=== PATIENT | male | born 1960 | race Caucasian/White ===

== ENCOUNTER 2021-05-27 16:50 | Inpatient (IN) | payer BC ==
[~2021-05-27 16:50] MED LIST: Iopamidol-370 76% 500 ML 1 ML ONE
[2021-05-27 18:01] LABS: #Lymphocytes 0.7 thou/uL (1.20-3.40); #Monocytes 0.4 thou/uL (0.11-0.59); #Neutrophils 7.7 thou/uL (1.40-6.50); %Basophils 0.3 % (0.0-1.0); %Lymphocytes 8.4 % (21.0-51.0); %Neutrophils 87.2 % (42.0-75.0); Hemoglobin 13.7 g/dL (14.0-18.0); Mean Corpuscular HGB CONC 35.5 g/dL (32.0-36.0); Mean Corpuscular Hemoglobin 33.2 pg (27.0-31.0); Mean Corpuscular Volume 93.4 fL (78.0-98.0); Platelet Count 206 thou/uL (130-400); RBC Distribution Width 12.1 % (11.5-14.5); Red Blood Cell (RBC) Count 4.13 mill/uL (4.70-6.10); White Blood Cell (WBC) Count 8.8 thou/uL (4.8-10.8)
[2021-05-27 18:19] LABS: ALT (SGPT) 39 U/L (8-55); AST (SGOT) 45 U/L (5-34); Albumin 3.7 g/dL (3.4-4.8); Alkaline Phosphatase 260 U/L (40-110); Anion Gap 14 mmol/L (10-20); BUN (Urea Nitrogen) 15 mg/dL (8.4-25.7); Bilirubin, Total 0.7 mg/dL (0.2-1.2); Calc. Creatinine Clearance 0 mL/min (70-130); Calcium 8.7 mg/dL (7.8-10.44); Carbon Dioxide 25 mmol/L (23-31); Chloride 101 mmol/L (98-107); Globulin 2.8 g/dL (2.4-3.5); Glucose 104 mg/dL (80-115); Magnesium 2.2 mg/dL (1.6-2.6); Potassium 4.4 mmol/L (3.5-5.1); Protein, Total 6.5 g/dL (5.8-8.1); Sodium 136 mmol/L (136-145)
[2021-05-27] MEDS ORDERED: Ondansetron ODT 4 MG TAB PO PRN (19:17)
[2021-05-27] MEDS ORDERED: Ketorolac Tromethamine 30 MG/ML VIAL ONE (19:17)
[2021-05-27] MEDS ORDERED: Acetaminophen 500 MG TAB ONE (19:17)
[2021-05-27] MEDS ORDERED: Dexamethasone 4 mg/ml Vial ONE (19:17)
[2021-05-27] MEDS ORDERED: Guaifenesin DM 100-10/5 ML UDCUP PO PRN (19:17)
[2021-05-27] MEDS ORDERED: Ivermectin 3 MG TAB PO SCH (21:00)
[2021-05-27] MEDS: Melatonin 3 MG TAB PO SCH (23:05)
[2021-05-27] MEDS: Enoxaparin Sodium 40 MG/0.4 ML SYRINGE SC SCH (23:05)
[2021-05-27] MEDS: Colchicine 0.6 MG TAB PO SCH (23:05)
[2021-05-27] MEDS: Dexamethasone 4 mg/ml Vial SLOW IVP SCH (23:06)
[2021-05-28] MEDS ORDERED: Benzonatate 100 MG CAP PO PRN (00:47)
[2021-05-28 05:56] LABS: #Lymphocytes 0.5 thou/uL (1.20-3.40); #Monocytes 0.2 thou/uL (0.11-0.59); #Neutrophils 6.2 thou/uL (1.40-6.50); %Basophils 0.2 % (0.0-1.0); %Lymphocytes 6.9 % (21.0-51.0); %Monocytes 2.9 % (0.0-10.0); %Neutrophils 90.1 % (42.0-75.0); Hemoglobin 13.7 g/dL (14.0-18.0); Mean Corpuscular HGB CONC 31.1 g/dL (32.0-36.0); Mean Corpuscular Hemoglobin 29.1 pg (27.0-31.0); Mean Corpuscular Volume 93.6 fL (78.0-98.0); Mean Platelet Volume 8.1 fL (7.4-10.4); Platelet Count 235 thou/uL (130-400); RBC Distribution Width 12.2 % (11.5-14.5); Red Blood Cell (RBC) Count 4.69 mill/uL (4.70-6.10); White Blood Cell (WBC) Count 6.8 thou/uL (4.8-10.8)
[2021-05-28 06:23] LABS: ALT (SGPT) 38 U/L (8-55); AST (SGOT) 39 U/L (5-34); Albumin 3.5 g/dL (3.4-4.8); Alkaline Phosphatase 240 U/L (40-110); Anion Gap 14 mmol/L (10-20); BUN (Urea Nitrogen) 18 mg/dL (8.4-25.7); Bilirubin, Total 0.5 mg/dL (0.2-1.2); Calc. Creatinine Clearance 0 mL/min (70-130); Calcium 9.5 mg/dL (7.8-10.44); Carbon Dioxide 24 mmol/L (23-31); Chloride 100 mmol/L (98-107); Globulin 3.7 g/dL (2.4-3.5); Glucose 185 mg/dL (80-115); Potassium 4.4 mmol/L (3.5-5.1); Protein, Total 7.2 g/dL (5.8-8.1); Sodium 134 mmol/L (136-145)
[2021-05-28] MEDS: Mometasone 200 MCG/Formoterol 5 MCG 120 PUFF INHALER INH SCH ×2 (06:41→18:04)
[2021-05-28] MEDS: Cholecalciferol 1,000 UNITS (25 MCG) TAB PO SCH (07:43)
[2021-05-28] MEDS: Ascorbic Acid 500 mg Chewable Tablet PO SCH (07:43)
[2021-05-28] MEDS: Dexamethasone 4 mg/ml Vial SLOW IVP SCH ×2 (07:44→20:37)
[2021-05-28] MEDS: Zinc Sulfate 220 MG CAP PO SCH (07:44)
[2021-05-28] MEDS: Colchicine 0.6 MG TAB PO SCH ×2 (07:44→20:37)
[2021-05-28] MEDS: Acetaminophen 325 MG TAB PO PRN (07:45)
[2021-05-28] MEDS: Enoxaparin Sodium 40 MG/0.4 ML SYRINGE SC SCH ×2 (07:47→20:37)
[2021-05-28] MEDS: Ivermectin 3 MG TAB PO SCH (08:36)
[2021-05-28 13:47] VITALS: BMI 24.4
[2021-05-28] MEDS ORDERED: Prevnar 13-Val Conj/PF 0.5 ML SYRINGE IM ONE (21:00)
[2021-05-28] MEDS: Melatonin 3 MG TAB PO SCH ×2 (21:00→21:03)
[2021-05-28] MEDS: Atorvastatin Calcium 20 MG TAB PO SCH ×2 (21:00→21:01)
[2021-05-28] MEDS ORDERED: Melatonin 3 MG TAB ONE (21:00)
[2021-05-28] MEDS ORDERED: Lorazepam 2 MG/ML VIAL ONE (21:01)
[2021-05-28] MEDS: Amlodipine 5 MG TAB PO SCH (21:06)
[2021-05-28] MEDS: Fluticasone Propionate Nasal Spray 16 gm Bottle NASAL SCH (21:40)
[2021-05-29] MEDS: Azelastine 137 MCG/Spray 30 ML NS SCH ×3 (01:23→20:43)
[2021-05-29] MEDS: Acetaminophen 325 MG TAB PO PRN (01:25)
[2021-05-29] MEDS: Mometasone 200 MCG/Formoterol 5 MCG 120 PUFF INHALER INH SCH ×2 (05:13→17:59)
[2021-05-29] MEDS: Levothyroxine Sodium 100 MCG TAB PO SCH (05:13)
[2021-05-29] MEDS: Aspirin 81 mg Enteric Coated Tablet PO SCH (07:45)
[2021-05-29] MEDS: Dexamethasone 4 mg/ml Vial SLOW IVP SCH ×2 (07:45→20:42)
[2021-05-29] MEDS: Cholecalciferol 1,000 UNITS (25 MCG) TAB PO SCH (07:46)
[2021-05-29] MEDS: Ascorbic Acid 500 mg Chewable Tablet PO SCH (07:46)
[2021-05-29] MEDS: Colchicine 0.6 MG TAB PO SCH ×2 (07:46→20:43)
[2021-05-29] MEDS: Amlodipine 5 MG TAB PO SCH ×2 (07:46→20:43)
[2021-05-29] MEDS: Zinc Sulfate 220 MG CAP PO SCH (07:46)
[2021-05-29] MEDS: Allopurinol 300 MG TAB PO SCH (07:46)
[2021-05-29] MEDS: Enoxaparin Sodium 40 MG/0.4 ML SYRINGE SC SCH ×2 (07:47→20:43)
[2021-05-29] MEDS: Fluticasone Propionate Nasal Spray 16 gm Bottle NASAL SCH ×2 (07:57→20:44)
[2021-05-29] MEDS: Ivermectin 3 MG TAB PO SCH (07:58)
[2021-05-29] MEDS: Atorvastatin Calcium 20 MG TAB PO SCH (20:43)
[2021-05-29] MEDS: Melatonin 3 MG TAB PO SCH (20:43)
[2021-05-29] MEDS: Doxycycline 100 MG CAP PO SCH (20:44)
[2021-05-30] MEDS: Levothyroxine Sodium 100 MCG TAB PO SCH (04:27)
[2021-05-30] MEDS: Mometasone 200 MCG/Formoterol 5 MCG 120 PUFF INHALER INH SCH ×2 (06:16→17:45)
[2021-05-30] MEDS: Enoxaparin Sodium 40 MG/0.4 ML SYRINGE SC SCH ×2 (09:35→21:17)
[2021-05-30] MEDS: Dexamethasone 4 mg/ml Vial SLOW IVP SCH ×2 (09:36→21:16)
[2021-05-30] MEDS: Cholecalciferol 1,000 UNITS (25 MCG) TAB PO SCH (09:37)
[2021-05-30] MEDS: Ascorbic Acid 500 mg Chewable Tablet PO SCH (09:37)
[2021-05-30] MEDS: Amlodipine 5 MG TAB PO SCH ×2 (09:37→21:16)
[2021-05-30] MEDS: Allopurinol 300 MG TAB PO SCH (09:37)
[2021-05-30] MEDS: Aspirin 81 mg Enteric Coated Tablet PO SCH (09:38)
[2021-05-30] MEDS: Fluticasone Propionate Nasal Spray 16 gm Bottle NASAL SCH ×2 (09:38→21:17)
[2021-05-30] MEDS: Zinc Sulfate 220 MG CAP PO SCH (09:38)
[2021-05-30] MEDS: Azelastine 137 MCG/Spray 30 ML NS SCH ×2 (09:38→21:17)
[2021-05-30] MEDS: Doxycycline 100 MG CAP PO SCH ×2 (09:38→21:16)
[2021-05-30] MEDS: Colchicine 0.6 MG TAB PO SCH ×2 (09:38→21:16)
[2021-05-30] MEDS: Ivermectin 3 MG TAB PO SCH (09:41)
[2021-05-30] MEDS: Atorvastatin Calcium 20 MG TAB PO SCH (21:16)
[2021-05-30] MEDS: Melatonin 3 MG TAB PO SCH (21:17)
[2021-05-31] MEDS: Levothyroxine Sodium 100 MCG TAB PO SCH (04:35)
[2021-05-31] MEDS: Mometasone 200 MCG/Formoterol 5 MCG 120 PUFF INHALER INH SCH ×2 (04:35→17:58)
[2021-05-31] MEDS: Cholecalciferol 1,000 UNITS (25 MCG) TAB PO SCH (09:02)
[2021-05-31] MEDS: Dexamethasone 10 MG/ML VIAL SLOW IVP SCH ×2 (09:02→20:47)
[2021-05-31] MEDS: Allopurinol 300 MG TAB PO SCH (09:02)
[2021-05-31] MEDS: Amlodipine 5 MG TAB PO SCH ×2 (09:02→20:48)
[2021-05-31] MEDS: Aspirin 81 mg Enteric Coated Tablet PO SCH (09:03)
[2021-05-31] MEDS: Enoxaparin Sodium 40 MG/0.4 ML SYRINGE SC SCH ×2 (09:03→20:47)
[2021-05-31] MEDS: Ascorbic Acid 500 mg Chewable Tablet PO SCH (09:03)
[2021-05-31] MEDS: Doxycycline 100 MG CAP PO SCH ×2 (09:03→20:47)
[2021-05-31] MEDS: Zinc Sulfate 220 MG CAP PO SCH (09:03)
[2021-05-31] MEDS: Azelastine 137 MCG/Spray 30 ML NS SCH ×2 (09:04→20:48)
[2021-05-31] MEDS: Ivermectin 3 MG TAB PO SCH (09:04)
[2021-05-31] MEDS: Fluticasone Propionate Nasal Spray 16 gm Bottle NASAL SCH ×2 (09:05→19:24)
[2021-05-31] MEDS: Colchicine 0.6 MG TAB PO SCH ×2 (09:05→19:24)
[2021-05-31] MEDS: Melatonin 3 MG TAB PO SCH (20:47)
[2021-05-31] MEDS: Atorvastatin Calcium 20 MG TAB PO SCH (20:47)
[2021-06-01] MEDS: Levothyroxine Sodium 100 MCG TAB PO SCH (05:42)
[2021-06-01] MEDS: Dexamethasone 10 MG/ML VIAL SLOW IVP SCH ×2 (09:21→21:28)
[2021-06-01] MEDS: Ivermectin 3 MG TAB PO SCH (09:21)
[2021-06-01] MEDS: Cholecalciferol 1,000 UNITS (25 MCG) TAB PO SCH (09:21)
[2021-06-01] MEDS: Zinc Sulfate 220 MG CAP PO SCH (09:22)
[2021-06-01] MEDS: Aspirin 81 mg Enteric Coated Tablet PO SCH (09:22)
[2021-06-01] MEDS: Amlodipine 5 MG TAB PO SCH ×2 (09:22→21:26)
[2021-06-01] MEDS: Colchicine 0.6 MG TAB PO SCH ×2 (09:22→21:30)
[2021-06-01] MEDS: Ascorbic Acid 500 mg Chewable Tablet PO SCH (09:23)
[2021-06-01] MEDS: Enoxaparin Sodium 40 MG/0.4 ML SYRINGE SC SCH ×2 (09:23→21:27)
[2021-06-01] MEDS: Allopurinol 300 MG TAB PO SCH (09:23)
[2021-06-01] MEDS: Doxycycline 100 MG CAP PO SCH ×2 (09:23→21:26)
[2021-06-01] MEDS: Mometasone 200 MCG/Formoterol 5 MCG 120 PUFF INHALER INH SCH ×2 (09:46→19:15)
[2021-06-01] MEDS: Azelastine 137 MCG/Spray 30 ML NS SCH ×2 (09:47→21:27)
[2021-06-01] MEDS: Fluticasone Propionate Nasal Spray 16 gm Bottle NASAL SCH ×2 (09:47→21:30)
[2021-06-01] MEDS: Atorvastatin Calcium 20 MG TAB PO SCH (21:26)
[2021-06-01] MEDS: Melatonin 3 MG TAB PO SCH (21:33)
[2021-06-01] MEDS: Acetaminophen 325 MG TAB PO PRN (23:18)
[2021-06-02] MEDS ORDERED: ALPRAZolam 0.25 MG TAB PO SCH (03:00)
[2021-06-02] MEDS: Mometasone 200 MCG/Formoterol 5 MCG 120 PUFF INHALER INH SCH (06:24)
[2021-06-02] MEDS: Levothyroxine Sodium 100 MCG TAB PO SCH (06:24)
[2021-06-02] MEDS: Cholecalciferol 1,000 UNITS (25 MCG) TAB PO SCH (08:17)
[2021-06-02] MEDS: Allopurinol 300 MG TAB PO SCH (08:17)
[2021-06-02] MEDS: Zinc Sulfate 220 MG CAP PO SCH (08:17)
[2021-06-02] MEDS: Ascorbic Acid 500 mg Chewable Tablet PO SCH (08:17)
[2021-06-02] MEDS: Doxycycline 100 MG CAP PO SCH (08:17)
[2021-06-02] MEDS: Aspirin 81 mg Enteric Coated Tablet PO SCH (08:17)
[2021-06-02] MEDS: Amlodipine 5 MG TAB PO SCH (08:18)
[2021-06-02] MEDS: Colchicine 0.6 MG TAB PO SCH ×2 (08:18→08:19)
[2021-06-02] MEDS: Azelastine 137 MCG/Spray 30 ML NS SCH (08:18)
[2021-06-02] MEDS: Dexamethasone 10 MG/ML VIAL SLOW IVP SCH (08:19)
[2021-06-02] MEDS: Enoxaparin Sodium 40 MG/0.4 ML SYRINGE SC SCH (08:20)
[2021-06-02] MEDS: Fluticasone Propionate Nasal Spray 16 gm Bottle NASAL SCH (08:20)
[2021-06-02] MEDS: Ivermectin 3 MG TAB PO SCH (08:20)
[2021-06-02 17:12] VITALS: BP 131/74; TEMP 98.1
== END 2021-06-02 18:54 | disposition home or self-care (01) | DRG 177 ==
LOC: ERS 16:50 → T4-B 19:38 → OBSVTOIN 20:00 → T4-B 22:02
PROVIDERS: ADMIT Internal Medicine; ATTEND Internal Medicine
PROC: 8E0ZXY6 Isolation (ICD-10-PCS; principal; 2021-05-27)
DX: U07.1 COVID-19 (principal); J12.82 Pneumonia due to coronavirus disease 2019; J96.01 Acute respiratory failure with hypoxia; E78.5 Hyperlipidemia, unspecified; I10 Essential (primary) hypertension; E03.9 Hypothyroidism, unspecified; M10.9 Gout, unspecified; J30.9 Allergic rhinitis, unspecified; Z96.611 Presence of right artificial shoulder joint; Z28.21 Immunization not carried out because of patient refusal; Z87.442 Personal history of urinary calculi; Z79.899 Other long term (current) drug therapy; Z79.82 Long term (current) use of aspirin; Z79.51 Long term (current) use of inhaled steroids; Z79.890 Hormone replacement therapy
CPT/HCPCS: 36415; 71045; 71275; 80053; 82728; 83605; 83735; 83880; 84145; 84484; 85025; 85379; 86140; 93005; 96372; 96374; 96375; 96376; G0378; J1100; J1650; J1885; Q0162; Q9967